=== PATIENT | male | born 1990 | race Caucasian/White ===

== ENCOUNTER 2018-12-24 09:31 | Emergency (ER) | payer OTHER ==
--- NOTE | 2018-12-24 11:16 | ED Physician Documentation ---
PD HPI TRUNK INJURY - Stated complaint Stated Complaint: RIB PX - Chief complaint Chief Complaint: Back Pain - History obtained from History obtained from: Patient - History of Present Illness Location: Left chest, Left abdomen Type of injury: Other (sneezed hard and hurting in lower rib.) Timing - onset: Last night Timing - duration: Days (1/2) Timing - details: Abrupt onset (he had had cough for few days and some chest muscle soreness. He had a hard sneeze last evening and said he felt a sudden pa in left side anterior upper abd and lower costal margin chest.), Still present Quality: Pain, Sharp Worsened by: Moving, Palpating Associated symtptoms: No: Weakness, Numbness, Swelling Where injury occured: Home Similar symptoms before: Has not had sx before Recently seen: Not recently seen Review of Systems Constitutional: reports: Myalgias. denies: Fever, Chills Nose: reports: Rhinorrhea / runny nose, Congestion Throat: denies: Sore throat Cardiac: reports: Chest pain / pressure (left lower anterior cartilage hurting.). denies: Palpitations, Pedal edema, Calf pain Respiratory: reports: Cough GI: reports: Abdominal Pain (hurting LUQ as well as the chest wall.). denies: Nausea, Vomiting, Diarrhea Skin: denies: Rash, Lesions Neurologic: reports: Generalized weakness. denies: Focal weakness, Numbness PD PAST MEDICAL HISTORY - Past Medical History Past Medical History: No Cardiovascular: None Respiratory: None Neuro: None Endocrine/Autoimmune: None - Past Surgical History Past Surgical History: Yes - Present Medications Home Medications: Ambulatory Orders Medication Instructions Recorded Confirmed Benzonatate [Tessalon Perle] 100 - 200 mg PO TID PRN #30 capsule 12/24/18 Dexamethasone [Decadron] 4 mg PO DAILY #5 tablet 12/24/18 Naproxen 375 mg PO BID #20 tablet 12/24/18 Oxycodone HCl/Acetaminophen 1 each PO Q6H PRN #15 tablet 12/24/18 [Percocet 5-325 mg Tablet] - Allergies Allergies/Adverse Reactions: Allergies Allergy/AdvReac Type Severity Reaction Status Date / Time No Known Drug Allergies Allergy Verified 12/24/18 09:38 - Social History Does the pt smoke?: No Smoking Status: Never smoker - Immunizations Immunizations are current?: Yes PD ED PE NORMAL - Vitals Vital signs reviewed: Yes - General General: Alert and oriented X 3, No acute distress, Well developed/nourished - Cardiac Cardiac: RRR, No murmur - Respiratory Respiratory: No respiratory distress - Abdomen Abdomen: Soft, Non distended, No organomegaly, Other (tender left lowest rib/cartiage noted in left lateral costal rib margin. No rash nor sores. Also very tender LUQ abd, with guarding and percussion tenderness. ) - Male Male : Deferred - Rectal Rectal: Deferred - Back Back: No CVA TTP, No spinal TTP - Derm Derm: Normal color, Warm and dry, No rash - Neuro Neuro: Alert and oriented X 3, No motor deficit, No sensory deficit, Normal speech Results - Vitals Vitals: Vital Signs - 24 hr 12/24/18 12/24/18 09:36 12:48 Temperature 36.5 C 36.6 C Heart Rate 73 65 Respiratory 20 16 Rate Blood Pressure 126/82 H 111/69 O2 Saturation 97 100 Oxygen O2 Source Room air - Rads (name of study) shirley/abd CT Radiology: Prelim report reviewed, See rad report PD MEDICAL DECISION MAKING - ED course Complexity details: reviewed results (presume cartilage injury at costal margin. Was concerned about miscarriage or ectopy, per patien. ), considered differential, d/w patient Departure - Departure Disposition: 01 Home, Self Care Clinical Impression: Left-sided chest pain, Abdominal pain, acute, left upper quadrant Upper respiratory infection Qualifiers: URI type: unspecified URI Qualified Code(s): J06.9 - Acute upper respiratory infection, unspecified Condition: Stable Record reviewed to determine appropriate education?: Yes Instructions: ED Upper Resp Infec No Abx Tx, ED Strain Chest Wall Follow-Up: [facility] [Provider Group] Prescriptions: Benzonatate [Tessalon Perle] 100 - 200 mg PO TID PRN #30 capsule PRN Reason: Cough Dexamethasone [Decadron] 4 mg PO DAILY #5 tablet Naproxen 375 mg PO BID #20 tablet Oxycodone HCl/Acetaminophen [Percocet 5-325 mg Tablet] 1 each PO Q6H PRN #15 tablet PRN Reason: pain Comments: Your scan did not show any significant abnormalities. Presume then the pain is musculoskeletal related to the coughing and sneeze. Use Tessalon for cough. Decadron steroid anti-inflammatory daily for 5 days to reduce bronchial irritation so there is less coughing. I presume this is generally head and chest cold and will get better over 5 or 6 days. Naproxen twice daily for pain and add Tylenol or Percocet if needed. Rest off work for couple of days. Recheck if not improving over the next few days. Forms: Activity restrictions Discharge Date/Time: 12/24/18 13:55
[2018-12-24] MEDS: KETOROLAC 30 MG/ML VIAL IVP STA (11:50)
[2018-12-24] MEDS: ACETAMINOPHEN 325 MG TABLET PO STA (11:50)
[2018-12-24] MEDS ORDERED: IOVERSOL 320 100 ML VIAL IVP ONE (11:51)
[2018-12-24] MEDS: SODIUM CHLORIDE 0.9% 1,000 ML IV ONE (11:51)
[2018-12-24] MEDS: IOVERSOL 320 100 ML VIAL IVP ONE (12:30)
[2018-12-24 12:51] VITALS: BP 111/69
--- NOTE | 2018-12-24 12:52 | CT Report ---
Reason: left chest/abd pain with sneezing, severe Procedure Date: 12/24/2018 Accession Number: [id number] / [id number] Procedure: CT - Chest W/ CPT Code: FULL RESULT: EXAM: CT CHEST, ABDOMEN AND PELVIS EXAM DATE: 12/24/2018 12:28 PM. CLINICAL HISTORY: Left chest/abd pain with sneezing, severe. COMPARISONS: None. TECHNIQUE: Routine helical CT imaging was performed through the chest, abdomen, and pelvis. IV contrast: OPTI 320 100mL. Enteric contrast: No. Reconstructions: Coronal and sagittal. In accordance with CT protocol optimization, one or more of the following dose reduction techniques were utilized for this exam: automated exposure control, adjustment of mA and/or KV based on patient size, or use of iterative reconstructive technique. FINDINGS: Lungs/Pleura: Normal. No nodules, bronchial thickening, consolidation, or edema. Pulmonary vasculature is normal. No effusions or pneumothorax. Mediastinum: Normal. No adenopathy or masses. Liver: Normal size and contour. Mild fatty infiltration with focal fatty sparing of the gallbladder fossa. Gallbladder/Bile Ducts: Unremarkable. Spleen: Normal. Pancreas: Normal. Adrenal Glands: Normal. Kidneys: Normal. No masses or hydronephrosis. Peritoneal Cavity/Bowel: Unopacified stomach and small bowel are unremarkable. Appendix is normal. There is a small amount of formed stool scattered in the colon. There is mild proximal sigmoid colon diverticulosis. There is no lymphadenopathy, ascites, or pneumoperitoneum. Pelvic Organs: The bladder, prostate gland, and seminal vesicles are unremarkable. Vasculature: No aneurysms or other significant abnormality. 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 There is no subluxation. Other bones are unremarkable. Left-sided ribs are intact. Other: Body wall is unremarkable. IMPRESSION: Normal chest, abdomen and pelvis CT. RADIA
--- NOTE | 2018-12-24 12:52 | CT Report ---
Reason: left lower chest/upper abd pain with sneezing Procedure Date: 12/24/2018 Accession Number: [id number] / [id number] Procedure: CT - Abdomen/Pelvis W/ CPT Code: FULL RESULT: EXAM: CT CHEST, ABDOMEN AND PELVIS EXAM DATE: 12/24/2018 12:28 PM. CLINICAL HISTORY: Left chest/abd pain with sneezing, severe. COMPARISONS: None. TECHNIQUE: Routine helical CT imaging was performed through the chest, abdomen, and pelvis. IV contrast: OPTI 320 100mL. Enteric contrast: No. Reconstructions: Coronal and sagittal. In accordance with CT protocol optimization, one or more of the following dose reduction techniques were utilized for this exam: automated exposure control, adjustment of mA and/or KV based on patient size, or use of iterative reconstructive technique. FINDINGS: Lungs/Pleura: Normal. No nodules, bronchial thickening, consolidation, or edema. Pulmonary vasculature is normal. No effusions or pneumothorax. Mediastinum: Normal. No adenopathy or masses. Liver: Normal size and contour. Mild fatty infiltration with focal fatty sparing of the gallbladder fossa. Gallbladder/Bile Ducts: Unremarkable. Spleen: Normal. Pancreas: Normal. Adrenal Glands: Normal. Kidneys: Normal. No masses or hydronephrosis. Peritoneal Cavity/Bowel: Unopacified stomach and small bowel are unremarkable. Appendix is normal. There is a small amount of formed stool scattered in the colon. There is mild proximal sigmoid colon diverticulosis. There is no lymphadenopathy, ascites, or pneumoperitoneum. Pelvic Organs: The bladder, prostate gland, and seminal vesicles are unremarkable. Vasculature: No aneurysms or other significant abnormality. 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 There is no subluxation. Other bones are unremarkable. Left-sided ribs are intact. Other: Body wall is unremarkable. IMPRESSION: Normal chest, abdomen and pelvis CT. RAD[facility]
[2018-12-24] MEDS: DEXAMETHASONE 10 MG/ML VIAL PO STA (13:46)
[2018-12-24] MEDS: BENZONATATE 100 MG CAPSULE PO STA (13:46)
== END 2018-12-24 13:55 | disposition home or self-care (01) ==
LOC: ED 09:31
DX: R07.9 Chest pain, unspecified (principal); R10.12 Left upper quadrant pain
CPT/HCPCS: 71260; 74177; 96361; 96374; 99283; A9270; Q9967

== ENCOUNTER 2019-07-10 09:37 | Emergency (ER) | payer OTHER ==
[2019-07-10] MEDS ORDERED: KETOROLAC 30 MG/ML VIAL IVP STA (10:05)
[2019-07-10 10:27] LABS: BASOPHILS # (AUTO) 0.1 10^3/uL (0.0-0.1); BASOPHILS % (AUTO) 0.8 %; EOSINOPHILS # (AUTO) 0.2 10^3/uL (0.0-0.7); EOSINOPHILS % (AUTO) 2.6 %; HGB - HEMOGLOBIN 14.3 g/dL (14.0-18.0); LYMPHOCYTES # (AUTO) 2.8 10^3/uL (1.5-3.5); LYMPHOCYTES % (AUTO) 35.3 %; MEAN CORPUSCULAR HEMOGLOBIN 30.4 pg (27.0-31.0); MEAN CORPUSCULAR VOLUME 86.8 fL (80.0-94.0); MEAN PLATELET VOLUME 9.7 fL (7.4-11.4); MONOCYTES # (AUTO) 0.5 10^3/uL (0.0-1.0); MONOCYTES % (AUTO) 6.7 %; NEUTROPHILS # (AUTO) 4.2 10^3/uL (1.5-6.6); NEUTROPHILS % (AUTO) 54.2 %; PLT - PLATELET COUNT 327 10^3/uL (130-450); RED BLOOD COUNT 4.71 10^6/uL (4.70-6.10); WHITE BLOOD COUNT 7.8 x10^3/uL (4.8-10.8)
[2019-07-10 10:38] LABS: ALBUMIN 4.6 g/dL (3.2-5.5); ALBUMIN/GLOBULIN RATIO 1.4 (1.0-2.2); BILIRUBIN,TOTAL 0.9 mg/dL (0.2-1.0); CALCIUM 9.4 mg/dL (8.5-10.3); CREATININE 0.9 mg/dL (0.6-1.2); TOTAL PROTEIN 7.8 g/dL (6.7-8.2)
--- NOTE | 2019-07-10 10:57 | CT Report ---
Reason: RLQ pain onset 3 am last night, persists Procedure Date: 07/10/2019 Accession Number: [id number] / [id number] Procedure: CT - Abdomen/Pelvis WO CPT Code: FULL RESULT: EXAM: CT ABDOMEN AND PELVIS (CT KUB) EXAM DATE: 07/10/2019 10:38 AM. CLINICAL HISTORY: RLQ pain onset 3 am last night, persists. COMPARISONS: ABDOMEN/PELVIS W/ 12/24/2018 12:05 PM. TECHNIQUE: Routine axial helical CT imaging was performed through the abdomen and pelvis without IV contrast. Reconstructions: Coronal and sagittal. In accordance with CT protocol optimization, one or more of the following dose reduction techniques were utilized for this exam: automated exposure control, adjustment of mA and/or KV based on patient size, or use of iterative reconstructive technique. FINDINGS: Lung Bases: Unremarkable. Right Kidney/Ureter: No stones, hydronephrosis, or hydroureter. No perinephric fat stranding. Left Kidney/Ureter: No stones, hydronephrosis, or hydroureter. No perinephric fat stranding. Other Solid Organs: The liver is moderately hypodense consistent with fatty infiltration as before. No focal masses. The spleen, pancreas and adrenal glands are unremarkable. Gallbladder/Bile Ducts: Unremarkable. Peritoneal Cavity: The proximal appendix is filled with multiple calcified appendicoliths some which were seen previously but have increased in number and density in the interval. However, the distal appendix contains a small amount of gas and is normal in caliber measuring 6 mm more less without visible inflammatory changes. No clear evidence for acute appendicitis. The colon is largely empty with only a minimal amount of stool in the cecum. No evidence for acute colitis or diverticulitis. Small bowel loops are also relatively decompressed diffusely without focal inflammation. No free fluid or adenopathy. Pelvic Organs: The urinary bladder, prostate and rectum are within normal limits. Vasculature: Unremarkable. Other: None. IMPRESSION: 1. Increasing number and density of multiple proximal appendicoliths but no evidence for distal obstruction or clear evidence of acute appendicitis at this time. 2. Colonic and small bowel loops are nearly completely empty diffusely which could represent sequela of a diffuse diarrheal process. No focal colitis or other focal inflammation identified. 3. Moderately fatty infiltrated liver as before. RADIA
--- NOTE | 2019-07-10 11:00 | ED Physician Documentation ---
PD HPI ABD PAIN - Stated complaint Stated Complaint: SIDE PX - Chief complaint Chief Complaint: Abd Pain - History obtained from History obtained from: Patient - History of Present Illness Timing - onset: Last night (about 3 am) Timing - details: Abrupt onset, Still present, Waxing and waning Quality: Cramping, Aching, Sharp (at times), Pain Location: RLQ Radiation: No: Lower back, Right flank Improved by: No: Eating Worsened by: No: Eating, Moving, Breathing, Palpation Associated symptoms: Nausea. No: Fever, Vomiting, Diarrhea, Constipation, Dysuria, Hematuria, Loss of appetite Similar symptoms before: Has not had sx before Recently seen: Not recently seen Review of Systems Constitutional: denies: Fever, Chills, Myalgias Nose: denies: Rhinorrhea / runny nose, Congestion Throat: denies: Sore throat Respiratory: denies: Cough GI: reports: Abdominal Pain, Nausea. denies: Abdominal Swelling, Vomiting, Constipation, Diarrhea : denies: Dysuria, Frequency Skin: denies: Rash, Lesions PD PAST MEDICAL HISTORY - Past Medical History Cardiovascular: None Respiratory: None Neuro: None Endocrine/Autoimmune: None GI: None : None Musculoskeletal: None - Past Surgical History Past Surgical History: Yes - Present Medications Home Medications: Ambulatory Orders Medication Instructions Recorded Confirmed Benzonatate [Tessalon Perle] 100 - 200 mg PO TID PRN #30 capsule 12/24/18 Naproxen 375 mg PO BID #20 tablet 12/24/18 Oxycodone HCl/Acetaminophen 1 each PO Q6H PRN #15 tablet 12/24/18 [Percocet 5-325 mg Tablet] dexAMETHasone [Decadron] 4 mg PO DAILY #5 tablet 12/24/18 Ibuprofen 600 mg PO TID PRN #25 tablet 07/10/19 Tramadol HCl 50 mg PO Q6H PRN #15 tablet 07/10/19 - Allergies Allergies/Adverse Reactions: Allergies Allergy/AdvReac Type Severity Reaction Status Date / Time No Known Drug Allergies Allergy Verified 07/10/19 09:42 - Social History Does the pt smoke?: No Smoking Status: Never smoker - Immunizations Immunizations are current?: Yes PD ED PE NORMAL - Vitals Vital signs reviewed: Yes - General General: Alert and oriented X 3, No acute distress, Well developed/nourished - Neck Neck: Supple, no meningeal sign, No adenopathy - Cardiac Cardiac: RRR, No murmur - Respiratory Respiratory: Clear bilaterally - Abdomen Abdomen: Normal bowel sounds, Soft, Non distended, No organomegaly, Other (Minimal tenderness without guarding or percussion tenderness in the right lower quadrant. No hernias are felt. There is no CVA tenderness. The rest of the abdomen is not tender. Bowel sounds are normally present.) - Back Back: No CVA TTP - Derm Derm: Normal color, Warm and dry, No rash - Neuro Neuro: Alert and oriented X 3, No motor deficit, Normal speech Results - Vitals Vitals: Vital Signs - 24 hr 07/10/19 07/10/19 07/10/19 09:40 10:00 11:37 Temperature 36.4 C L 36.7 C Heart Rate 71 73 59 L Respiratory 16 20 16 Rate Blood Pressure 131/79 H 123/71 125/77 O2 Saturation 93 95 95 07/10/19 11:46 Temperature 36.7 C Heart Rate 74 Respiratory 17 Rate Blood Pressure 125/77 O2 Saturation 98 Oxygen O2 Source Room air - Labs Labs: Laboratory Tests 07/10/19 07/10/19 10:15 10:15 WBC 7.8 RBC 4.71 Hgb 14.3 Hct 40.9 L MCV 86.8 MCH 30.4 MCHC 35.0 RDW 12.0 Plt Count 327 MPV 9.7 Neut # (Auto) 4.2 Lymph # (Auto) 2.8 [place] # (Auto) 0.5 Eos # (Auto) 0.2 Baso # (Auto) 0.1 Absolute Nucleated RBC 0.00 Nucleated RBC % 0.0 Sodium 136 Potassium 3.9 Chloride 101 Carbon Dioxide 25 Anion Gap 10.0 BUN 17 Creatinine 0.9 Estimated GFR (MDRD) 98 Glucose 84 Calcium 9.4 Total Bilirubin 0.9 AST 32 ALT 82 H Alkaline Phosphatase 72 Total Protein 7.8 Albumin 4.6 Globulin 3.2 Albumin/Globulin Ratio 1.4 Lipase 32 - Rads (name of study) KUB CT Radiology: Prelim report reviewed, EMP read contemporaneously (Normal kidneys. No kidney stone is seen. The patient has a very long appendix with appendicoliths but it does not appear inflamed.), See rad report PD MEDICAL DECISION MAKING - ED course Complexity details: considered differential (Consider appendicitis versus kidney stone versus other process.), d/w patient Departure - Departure Disposition: 01 Home, Self Care Clinical Impression: RLQ abdominal pain, Appendicolith Condition: Stable Record reviewed to determine appropriate education?: Yes Instructions: ED Abdominal Pain Appendx Poss Follow-Up: OCTAVIO MCKINNON [Primary Care Provider] - Prescriptions: Ibuprofen 600 mg PO TID PRN #25 tablet PRN Reason: Pain Tramadol HCl 50 mg PO Q6H PRN #15 tablet PRN Reason: Pain Comments: No obvious cause for this pain on your labs or CT scan. There are no kidney stones seen. Your gallbladder appears normal. Your appendix does not look inflamed. There are small stones present in the appendix which sometimes can irritate it. Again no signs of acute appendicitis at this point. Stay well-hydrated through the day. Ibuprofen 3 times a day for the next few days. Add Tylenol or tramadol if needed for pain. Recheck if this has not resolved completely over the next couple of days. Return sooner to the ER if you have increasing pain, fever, vomiting, bloody stool, other concerns. Discharge Date/Time: 07/10/19 11:46
[2019-07-10] MEDS ORDERED: ACETAMINOPHEN 325 MG TABLET PO STA (11:21)
[2019-07-10 11:38] VITALS: BP 125/77
== END 2019-07-10 11:46 | disposition home or self-care (01) ==
LOC: ED 09:37
DX: K38.1 Appendicular concretions (principal)
CPT/HCPCS: 36415; 74176; 80053; 83690; 85025; 96374; 99284; A9270; 81001; 81003; 87086

== ENCOUNTER 2023-04-18 09:25 | Emergency (ER) | payer OTHER ==
--- NOTE | 2023-04-18 09:56 | ED Physician Documentation ---
PD HPI MALE - Stated complaint Stated Complaint: MALE - Chief complaint Chief Complaint: General - History obtained from History obtained from: Patient - History of Present Illness Timing - onset: How many days ago (3-4) Timing - duration: Days Timing - details: Gradual onset, Still present, Waxing and waning Associated symptoms: Scrotal swelling (not general swelling but has a lump feeling above the testicle that is tender.). No: Dysuria, Urinary frequency, Hematuria, Discharge PD HPI MALE CONTRIB FACTORS: Sexually active. No: Exposed to STD Similar symptoms before: Has not had sx before Recently seen: Not recently seen Review of Systems Constitutional: denies: Fever, Chills GI: denies: Abdominal Pain : denies: Dysuria, Frequency, Discharge Skin: denies: Rash PD PAST MEDICAL HISTORY - Past Medical History Past Medical History: No Cardiovascular: None Respiratory: None Neuro: None Endocrine/Autoimmune: None GI: None : None Musculoskeletal: None - Past Surgical History Past Surgical History: Yes - Present Medications Home Medications: Ambulatory Orders Medication Instructions Recorded Confirmed Doxycycline Hyclate 100 mg PO BID 7 Days #14 cap 04/18/23 Naproxen 500 mg PO BID #20 tab 04/18/23 - Allergies Allergies/Adverse Reactions: Allergies Allergy/AdvReac Type Severity Reaction Status Date / Time No Known Drug Allergies Allergy Verified 04/18/23 09:31 - Social History Does the pt smoke?: No Smoking Status: Never smoker Does the pt drink ETOH?: No Does the pt have substance abuse?: No - Immunizations Immunizations are current?: Yes PD ED PE NORMAL - Vitals Vital signs reviewed: Yes - General General: Alert and oriented X 3, No acute distress, Well developed/nourished - Abdomen Abdomen: Soft, Non tender - Male Male : Other (no inguinal hernias nor nodes. Normal lie. Reactive cremaster reflex on left. Testicle feels normal size, no lumps but is somewhat tender diffusely. Feels same size as right. There is small lump above testicle along epidydmal like line. This is more tender. ) - Back Back: No CVA TTP - Derm Derm: Normal color, Warm and dry, No rash Results - Vitals Vitals: Vital Signs - 24 hr 04/18/23 04/18/23 04/18/23 09:28 09:57 12:24 Temperature 36.0 C L 36.6 C Heart Rate 64 62 71 Respiratory 16 16 Rate Blood Pressure 140/72 H 123/75 125/88 H O2 Saturation 100 98 100 Oxygen O2 Source Room air - Labs Labs: Laboratory Tests 04/18/23 10:10 Urine Color YELLOW Urine Clarity CLEAR Urine pH 6.0 Ur Specific [place] 1.010 Urine Protein NEGATIVE Urine Glucose (UA) NEGATIVE Urine Ketones NEGATIVE Urine Occult Blood NEGATIVE Urine Nitrite NEGATIVE Urine Bilirubin NEGATIVE Urine Urobilinogen 0.2 (NORMAL) Ur Leukocyte Esterase NEGATIVE Ur Microscopic Review NOT INDICATED Urine Culture Comments NOT INDICATED - Rads (name of study) scrotal U/S Relevant Findings:: See rad report (slight increased vascularity of lest testicle and small hydrocele. Susdpect mild orchitis. ), Other (inital report from [facility] with normal blood flow (somewhat increased flow in fact). and likely small hydrocele above testicle. ) PD Medical Decision Making - ED course Complexity details: reviewed results (I would try NSAIDs first. Less likely infectious but that would be next approach if continued worsening. ), considered differential (can get U/S to eval the flow but does not present as torsion in character. More concern would be structural such as hydrocele. General tenderness of left testicle too without dysuria nor discahrge and no recent URI/viral symptoms.Could be inflammatory with inapparent injury (has 2 and 4 year olds).), d/w patient Departure - Departure Disposition: 01 Home, Self Care Clinical Impression: Testicular/scrotal pain Condition: Stable Record reviewed to determine appropriate education?: Yes Instructions: ED Epididymitis, ED Hydrocele Type Not Specified Prescriptions: Doxycycline Hyclate 100 mg PO BID 7 Days #14 cap Naproxen 500 mg PO BID #20 tab Comments: The preliminary ultrasound report showed would appear to be likely a small hydrocele on that side. It is not very large so may or may not be actually contributing to the discomfort. If it was new then the stretching of it can be having pain. Otherwise you appear to have good blood flow to the testicle and if anything slightly increased blood flow which can be a sign of inflammation. Your urine is clear without any signs of infection. At this point would treat it with an anti-inflammatory with the idea of and traumatic or inflammatory epididymitis. If this does not improve over the next several days or so then consider adding an antibiotic as sometimes it will be infectious. This would be particularly true for keeps increasing. I would suggest some naproxen or ibuprofen 3 times daily with food. Add Tylenol every 4-6 hours if needed for pain. Activity as tolerated. If worsening then follow-up with your primary care or add doxycycline antibiotic in case. If this decreases and improves over the next several days and resolved by week then no change in treatment necessarily. Discharge Date/Time: 04/18/23 12:24
[2023-04-18] MEDS ORDERED: IBUPROFEN 600 MG TABLET PO STA (10:09)
[2023-04-18 10:21] LABS: BILIRUBIN,URINE NEGATIVE (NEGATIVE); GLUCOSE, URINE (UA) NEGATIVE (NEGATIVE); KETONES,URINE (UA) NEGATIVE (NEGATIVE); LEUKOCYTE ESTERASE, URINE NEGATIVE (NEGATIVE); NITRITE,URINE NEGATIVE (NEGATIVE); OCCULT BLOOD,URINE NEGATIVE (NEGATIVE); PROTEIN,URINE NEGATIVE (NEGATIVE); UROBILINOGEN,URINE 0.2 (NORMAL) E.U./dL (NORMAL)
[2023-04-18 10:29] LABS: CLARITY,URINE CLEAR (CLEAR)
[2023-04-18 12:25] VITALS: BP 125/88
--- NOTE | 2023-04-18 12:46 | Ultrasound Report ---
PROCEDURE: Testicle w/Doppler INDICATIONS: left scrotal pain few days TECHNIQUE: Real-time scanning was performed of the scrotum and testicles, with image documentation. Color and p ulse Doppler interrogation was performed of both testicles. COMPARISON: None. FINDINGS: Right: Testicle is normal in size at 4.6 x 3.9 x 2.1 cm, and homogenous in echotexture. Epididymis measures 1 x 0.8 x 0.8 cm, heterogeneous. No hydrocele or varicoceles. Overlying scrotal skin is no rmal in thickness. Left: Testicle is normal in size at 4.8 x 3.5 x 2.4 cm, and homogeneous in echotexture. Epididymis measures 1.3 x 1.2 x 1 cm, heterogeneous. Trace hydrocele with mobile debris. No varicoceles. [place] ing scrotal skin is normal in thickness. Doppler: Increased asymmetric vascularity of the left testicle compared to the right. Blood flow with in the epididymides appear symmetric. IMPRESSION: 1. Increased vascularity of the left testicle compared to the right. Suspect left orchitis. 2. Trace left hydrocele with debris. 3. No testicular mass. Reviewed by: Mohamud Land MD on 04/18/2023 12:44 PM PDT Approved by: Mohamud Land MD on 04/18/2023 12:44 PM PDT Station ID: [id number]
== END 2023-04-18 12:24 | disposition home or self-care (01) ==
LOC: ED 09:25
DX: N50.812 Left testicular pain (principal); N50.82 Scrotal pain
CPT/HCPCS: 76870; 81003; 93975; 99283; 99284; A9270; 81001; 87086